=== PATIENT | male | born 1965 | race African-American/Black ===

== ENCOUNTER 2016-09-16 10:17 | Emergency (ER) ==
--- NOTE | 2016-09-16 11:05 | PROVIDER DOCUMENTATION ---
HPI-Respiratory General <Aditi Calle - Last Filed: 09/16/16 11:05> - General Source: patient - History of Present Illness-Resp Quality of Pain: reports: aching Severity in ED: reports: mild Onset/Duration: reports: 3 days ago Timing: reports: still present Exposure: reports: unknown cause Cough Quality/Degree: reports: moderate Current Respiratory Medication Therapy: Initiated none Modifying Factors: improves with: nothing Associated Symptoms: reports: muscle/bodyaches Similar Symptoms Previously?: No Recently seen or treated by another doctor?: No <Tami Gómez - Last Filed: 09/16/16 14:09> - General Chief Complaint: Cough Stated Complaint: BACK/CHEST PAIN,CONGESTION Time Seen by Provider: 09/16/16 12:50 Allergies/Adverse Reactions: Patient Allergies Allergy/AdvReac Type Severity Reaction Status Date / Time Penicillins Allergy Severe ANAPHYLAXIS Verified 03/27/15 18:13 Home Medications: Home Medication List Medication Instructions Recorded Confirmed Last Taken Type Clonidine [Catapres] 0.1 mg PO BID #60 tablet 05/02/15 Unknown Rx Albuterol Sulfate Inhaler 2 puff INH Q6H PRN PRN #1 inhaler 09/16/16 Unknown Rx [Ventolin Hfa] Oseltamivir [Tamiflu] 75 mg PO BID #10 capsule 09/16/16 Unknown Rx - History of Present Illness-Resp Nature of Presenting Problem: 50 yo male presents to ER with c/o cough, back and right side pain with cough; muscle aches for the past 2-3 days. (Tami Gómez) Review of Systems - Adult - REVIEW OF SYSTEMS - ADULT Constitutional: reports: no symptoms reported Eyes: reports: no symptoms reported Ears, Nose, Mouth & Throat: reports: no symptoms reported Cardiovascular: reports: no symptoms reported Respiratory: reports: see HPI, dyspnea on exertion Gastrointestinal: reports: no symptoms reported Genitourinary: reports: no symptoms reported Musculoskeletal: reports: see HPI, muscle aches Integumentary: reports: no symptoms reported Neurological: reports: no symptoms reported Psychiatric: reports: no symptoms reported Endocrine: reports: no symptoms reported Hematologic/Lymphatic: reports: no symptoms reported Allergic/Immunologic: reports: no symptoms reported All Other Systems: Reviewed and Negative <Tami Gómez - Last Filed: 09/16/16 14:09> Past History - Adult - PAST MEDICAL HISTORY-ADULT Major Childhood Illnesses: reports: denies history Cardiovascular: reports: denies history Respiratory: reports: denies history Gastrointestinal: reports: denies history Genitourinary: reports: denies history Musculoskeletal: reports: denies history Neurological: reports: denies history Psychiatric: reports: denies history Endocrine/Immune: reports: denies history Other Conditions: reports: denies history - PRIOR SURGERIES/PROCEDURES Surgical/Procedure History: reports: none - IMMUNIZATION STATUS Childhood Immunizations: See Nurse Assessment Flu Vaccine: See Nurse Assessment <LucAditi - Last Filed: 09/16/16 11:05> - PAST MEDICAL HISTORY-ADULT Review of Records: reports: Old Records Reviewed, Nursing Assessment Review, Medications Reviewed, Social history reviewed & non-contributory. Major Childhood Illnesses: reports: denies history Cardiovascular: reports: denies history Respiratory: reports: denies history Gastrointestinal: reports: denies history Obstetrical/Gynecological: reports: denies history Genitourinary: reports: denies history Musculoskeletal: reports: denies history Neurological: reports: denies history Endocrine/Immune: reports: denies history Other Conditions: reports: denies history - IMMUNIZATION STATUS Childhood Immunizations: See Nurse Assessment Flu Vaccine: See Nurse Assessment - FAMILY HISTORY Family History: reviewed, not pertinent - SOCIAL HISTORY Smoking: denies, non-smoker Substance Use: none/never, denies Alcohol Use Frequency: never <Tami Gómez - Last Filed: 09/16/16 14:09> Physical Exam-General - PHYSICAL EXAM-ADULT Initial Vital Signs Reviewed: Yes - CONSTITUTIONAL General Appearance: appears well, alert, no apparent distress - EYES Eyes: PERRL/EOMI, pink conjunctivae - HEAD, EARS, NOSE, MOUTH & THROAT HENMT: normocephalic/atraumatic, moist mucous membranes, normal ENT inspection - RESPIRATORY Respiratory: no respiratory distress, decreased breath sounds (on right side) - CARDIOVASCULAR Cardiovascular: normal peripheral pulses, regular rate, rhythm - GASTROINTESTINAL (ABDOMEN) Abdominal Exam: normal bowel sounds, non tender, soft - MUSCULOSKELETAL Back Exam: other (tenderness to palpation over right scapula) Extremity: normal range of motion (but with pain in scapula area on movement of right arm) Peripheral Pulses: radial (R): 2+, radial (L): 2+ - SKIN Integumentary: normal color, normal turgor, warm/dry - NEUROLOGIC Neurologic: grossly normal - PSYCHIATRIC Psych/Mental Status: normal mood/affect, normal thought content, normal thought process, oriented x 3 <Tami Gómez - Last Filed: 09/16/16 14:09> Progress <Aditi Calle - Last Filed: 09/16/16 11:05> - REASSESSMENT Reassessment #1 Time Reassessed: 15:55 (feels better after breathing treatment) Status: improving - XRAY 1 XRAY Study: Chest Impression: Normal (no evidence of acute chest pathology) XRAY Interpretation: Interpreted by Dr. Beckford <Tami Gómez - Last Filed: 09/16/16 14:09> - PLAN OF CARE/RESULTS Progress/Plan/Lab Results: 1555-Discussed results/dx/tx/discharge and follow up instructions with patient; he verbalized understanding. Laboratory Tests 09/16/16 13:07 Influenza A (Rapid) NEGATIVE Influenza B (Rapid) POSITIVE A Orders Category Date Time Status CHEST-2 VIEWS [RAD] Stat Exams 09/16/16 10:[address] Stat Lab 09/16/16 13:07 Completed Albuterol 2.5MG/Ipratrop 0.5MG [Duoneb (A & A)] Med 09/16/16 13:09 Discontinued 3 ml INH NOW ONE Oseltamivir [Tamiflu] Med 09/16/16 13:59 Discontinued 75 mg PO NOW ONE Aerosol Treatments Routine Oth 09/16/16 13:09 Active Aerosol Treatments Stat Oth 09/16/16 13:09 Active Vital Signs - 24 hr 09/16/16 09/16/16 09/16/16 10:21 12:20 13:20 Temperature 97.8 F Pulse Rate 85 73 68 Respiratory 18 18 16 Rate Blood Pressure 135/87 144/93 O2 Sat by Pulse 99 99 98 Oximetry (Tami Gómez) Departure <Aditi Calle - Last Filed: 09/16/16 11:05> - Departure Time of Disposition Order: 14:02 Certified Medical Emergency: Emergent <Tami Gómez - Last Filed: 09/16/16 14:09> - Departure DIAGNOSIS: Influenza B, Cough, Muscular aches Disposition: HOME 01 Condition: Good Additional Instructions: Follow up with primary care doctor as needed. Take medications as prescribed. Stay well hydrated. Alternate motrin with tylenol as needed for fever and body aches. ED Follow Up Instructions: You have been treated by a care provider in the Emergency Department. These instructions are being provided to you so you can have an understanding of how to care for yourself upon discharge. Upon discharge from the Emergency Department, you are responsible for making arrangements for follow-up care by a physician of your choice. Take all prescribed medications as directed. Return to the Emergency Department immediately for any new or worsening symptoms. You may call the Physician Referral phone number at [phone] to obtain a list of Physicians who are taking new patients. Prescriptions: Oseltamivir [Tamiflu] 75 mg PO BID #10 capsule Albuterol Sulfate Inhaler [Ventolin Hfa] 2 puff INH Q6H PRN PRN #1 inhaler PRN Reason: Shortness Of Breath Referrals: None,PCP [Primary Care Provider] - Forms: Return to School/Parent Work Attestation - Scribe Verification/Attestation Scribe:: Aditi Calle Scribe documention review:: This chart was documented by a scribe and accurately reflects the service the provider performed and the decisions made by the provider. <Aditi Calle - Last Filed: 09/16/16 11:05> - Physician/ KJ Attestation Patient care was provided by Advanced Practice Provider:: Yes Advanced Practice Provider:: Tami Gómez Advanced Practice Provider documentation review:: The Mid-level provider documentation, treatment plan and medical decision making was reviewed by the physician who agrees with all treatment and medical decision making by the [facility]. <Tami Gómez - Last Filed: 09/16/16 14:09> Physician Attestation - Physician Attestation I, the provider, attest to the following statement:: Tami Gómez Physician documentation Attestation:: This documentation recorded by the scribe accurately reflects the service I personally performed and the decisions made by me. <Tami Gómez - Last Filed: 09/16/16 14:09>
[2016-09-16 12:21] VITALS: BP 144/93
--- NOTE | 2016-09-16 12:21 | Diag Imaging Result Document ---
PROCEDURE NAME: CHEST-2 VIEWS - 09/16/2016 PA AND LATERAL RADIOGRAPH OF THE CHEST: COMPARISON: 03/27/2015. FINDINGS: The lungs are grossly clear. There is no discrete pleural fluid collection or evidence of pneumothorax. The cardiomediastinal silhouette and upper airway are grossly unremarkable. IMPRESSION: No evidence of acute chest pathology.
[2016-09-16] MEDS ORDERED: DUONEB (A & A) INH ONE (13:09)
[2016-09-16] MEDS ORDERED: TAMIFLU PO ONE (13:59)
== END 2016-09-16 14:11 | disposition home or self-care (01) ==
LOC: P.ED 10:17
DX: J11.1 Influenza due to unidentified influenza virus with other respiratory manifestations (principal); R05 Cough; M79.1 Myalgia; M54.9 Dorsalgia, unspecified; R06.09 Other forms of dyspnea; Z79.899 Other long term (current) drug therapy
CPT/HCPCS: 71020; 87804; 94640; 99283